=== PATIENT | female | born 1935 | race Caucasian/White ===

== ENCOUNTER 2019-12-13 13:49 | Outpatient (CLI) | payer MEDICARE, OTHER, SELFPAY ==
--- NOTE | 2019-12-13 14:02 | MM_ITS ---
WS: [id number] BILATERAL DIGITAL SCREENING MAMMOGRAPHY WITH CAD CLINICAL INFORMATION: SCREENING HISTORY: Screening mammogram. No current complaints. COMPARISON: TECHNIQUE: Bilateral CC and MLO views. FINDINGS: The breasts are composed of heterogeneous fibroglandular density tissue, which can limit the detectio n of small underlying mass lesions. No suspicious mass, asymmetry, calcifications, or architectural d istortion. No evidence of malignancy. Punctate and lucent centered calcifications. MM/[place] [id number] IMPRESSION: BI-RADS: 2-Benign FOLLOW UP: 1 Year Follow-up Recommend return to annual screening mammography.
== END 2019-12-13 13:50 | disposition home or self-care (01) ==
LOC: RADSHAW 13:56
PROVIDERS: PCP Family Medicine; Visit Provider Family Medicine
DX: Z12.31 Encounter for screening mammogram for malignant neoplasm of breast (principal)
CPT/HCPCS: 77067

== ENCOUNTER → 2020-03-03 12:35 | Outpatient (BNVA) | payer MEDICARE, OTHER, SELFPAY | PROVIDERS: PCP Family Medicine; Referring Provider Dermatology; Visit Provider Dermatology | DX: Z12.83 Encounter for screening for malignant neoplasm of skin (principal); L82.1 Other seborrheic keratosis; L73.8 Other specified follicular disorders; L53.9 Erythematous condition, unspecified | CPT/HCPCS: 99203; 99204 ==

== ENCOUNTER 2020-04-13 07:21 | Emergency (ER) | payer MEDICARE, OTHER, SELFPAY ==
[2020-04-13 07:21] VITALS: BP 139/104; PULSE 60; RESP 16; TEMP 36.3; O2SAT 96; BMI 23.9
--- NOTE | 2020-04-13 07:33 | ECG_ITS ---
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
--- NOTE | 2020-04-13 07:34 | CTR_ITS ---
PROCEDURE INFORMATION: Exam: CT Head Without Contrast Exam date and time: 04/13/2020 7:36 AM Age: 84 years old Clinical indication: Dizziness; Additional info: Dizzy TECHNIQUE: Imaging protocol: Computed tomography of the head without contrast. Radiation optimization: All CT scans at this facility use at least one of these dose optimization techniques: automated exposure control; mA and/or kV adjustment per patient size (includes targeted exams where dose is matched to clinical indication); or iterative reconstruction. COMPARISON: No relevant prior studies available. RADIATION DOSE METRICS: Total DLP (mGy-cm): 769.49 FINDINGS: Brain: There is no acute intracranial hemorrhage. There is mild lucency in the cerebral white matter, likely microvascular disease although non-specific. Kilpatrick white differentiation is intact. There are no extra-axial fluid collections. No evidence of mass. There is no mass effect or midline shift. Cerebral ventricles: The ventricles and sulci are enlarged, consistent with age related volume loss / atrophy. No hydrocephalus. Bones/joints: No acute fracture. Paranasal sinuses: There is small amount of secretions in inferolateral aspect of right sphenoid sinus. Otherwise visualized paranasal sinuses clear. Mastoid air cells: There is minimal opacification/fluid in inferior aspect of mastoid air cells bilaterally. Middle ears are clear. Inner ear structures appear symmetric and unremarkable as visualized. Vasculature: There is vascular calcification. Soft tissues: Unremarkable as visualized. CT/CT head wo con* [id number] IMPRESSION: 1. No evidence of acute intracranial abnormality. No evidence of acute infarction, hemorrhage, or mass. 2. 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 3. Other findings as described. Radiation Dose CTDIVOL = (mGy): DLP = 769.49 (mGy-cm)
--- NOTE | 2020-04-13 07:36 | ED_ITS ---
HPI - Nausea/Vomiting/Diarrhea General: Chief complaint: Nausea/Vomiting/Diarrhea Stated complaint: NAUSEA; DIARRHEA Time Seen by Provider: 04/13/20 07:22 History of Present Illness: HPI Narrative: This patient is an 84-year-old female who presents today with vomiting and diarrhea. She reports that during the night she had to get up 3 times to urinate. She said that is unusual for her to have to go that frequently. She denies pain or dysuria but said she had a funny feeling in her bladder or kidneys. The last time she got up she became violently ill. She felt dizzy and had vomiting and diarrhea. She has had multiple episodes of both. 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 When EMS arrived she was unable to even sit up without vomiting. They gave her some p.o. Zofran. Once in the ambulance they also gave her some IV Zofran and she is feeling somewhat better now. She still has some dizziness which is not made worse by turning her head side to side but is worse if she tries to sit up. She denies abdominal pain. She denies fever or cough. She denies any exposures to Covid. She is agreeable to Covid testing given that some people are presenting with GI symptoms. She has no other neurologic symptoms by history suggesting stroke however when she is feeling better I will do a thorough neuro exam. MD elicited complaint: nausea, vomiting and diarrhea Onset (ago): hour(s) (A few) Description of vomiting: bilious and foul-smelling Associated nausea: Yes Associated abdominal pain: No Exacerbating factors: movement Associated symtoms: Reports nausea and other (Urinary frequency); Denies change in vision, chest pain, fatigue, headache(s) or malaise Review of Systems General: Reports: 10 or more systems reviewed and unremarkable except in HPI and below Const: Denies: fever(s), chills, fatigue or malaise Eyes: Denies: change in vision ENMT: Denies: odynophagia Card: Denies: chest pain or swelling of feet/ankles Resp: Denies: dyspnea, productive cough or non-productive cough GI: Reports: nausea, vomiting and diarrhea : Denies: flank pain or difficulty voiding Musc: Denies: neck pain or back pain Skin/Breast: Denies: rash Neuro: Denies: headache(s), numbness in extremities or weakness in extremities Darrell/Lymph: Denies: easy bruising or easy bleeding PFSH ED PFSH: Family History Other No pertinent family history Social History Smoking and tobacco status: never smoked Alcohol intake: never History of recent travel: No Physical Exam Const: COMMON NORMALS: no acute distress, patient oriented x3, no limitations and alert GENERAL APPEARANCE: cooperative and comfortable HENMT: HEAD & SCALP: normal to inspection FACE & SINUS: normal facial exam Eye: GENERAL EYE: appearance normal, both eyes and all related structures Neck/C-Spine: COMMON NORMALS: supple, no meningeal signs and no JVD Chest: COMMONS NORMALS: normal inspection of the chest Resp: COMMON NORMALS: normal respiratory effort, No use of accessory muscles and clear to auscultation bilaterally AUSCULTATION: clear to auscultation bilaterally Cardio: COMMON NORMALS: no JVD, regular rate, regular rhythm and No murmurs present (Cardio) RATE: regular rate RHYTHM: regular rhythm GI: COMMON NORMALS: Normal to inspection, nondistended, normoactive bowel sounds present, Soft to palpation and non-tender INSPECTION: Yes normal to inspection AUSCULTATION: Yes normoactive bowel sounds PALPATION: Yes Soft to palpation Back/Pelvis: COMMON NORMALS: thoracic and lumbar spine normal to inspection Extremity: COMMON NORMALS: normal to inspection Neuro: COMMON NORMALS: patient oriented x3, moves all extremities, no focal motor deficits and no sensory deficits noted SENSORIUM/ORIENTATION: Yes alert MENINGEAL SIGNS: Yes no meningeal signs OTHER: Repeat exam after symptoms had improved. She had no focal deficits. Normal extraocular muscles. No ataxia. No weakness, numbness, tingling. Psych: COMMON NORMALS: mental status grossly normal, cooperative and normal affect Skin: COMMON NORMALS: no rashes or lesions noted and turgor normal GENERAL SKIN EXAM: no rashes or lesions noted and turgor normal Course ED course: Patient has complete resolution of her symptoms. Her work-up in the ED was unremarkable. Repeat neuro exam was nonfocal. We discussed the possibility of vertigo and gave her a prescription for some meclizine. She will also follow-up with her primary care doctor. We discussed that diarrhea is not typically a symptom related to vertigo but she says her IBS is such that the diarrhea may have been related to that. Vital Signs: Vital signs: Vital Signs Temperature 97.4 F L 04/13/20 07:21 Pulse Rate 75 04/13/20 11:20 Respiratory Rate 14 04/13/20 11:20 Blood Pressure 149/67 04/13/20 11:20 Pulse Oximetry 98 04/13/20 11:20 MDM - Nausea/Vomiting/Diarrhea Lab Data: Labs: Lab Results 04/13/20 04/13/20 04/13/20 Range/Units 07:42 07:42 07:42 WBC 5.8 (4.0-10.0) 10^3/ uL RBC 4.98 (4.1-5.3) 10^6/u L Hgb 14.3 (11.5-15.3) g/dL Hct 45.9 (37.0-47.0) % MCV 92.2 (81-99) fL MCH 28.7 (28.0-34.0) pg MCHC 31.2 (30.0-36.0) g/dL RDW 13.8 (12.1-15.1) % Plt Count 213 (130-400) 10^3/c mm MPV 10.8 H (7.4-10.4) fL Neut % (Auto) 59.7 % Lymph % (Auto) 30.4 % Shackelford % (Auto) 7.4 % Eos % (Auto) 1.9 % Baso % (Auto) 0.3 % Neut # (Auto) 3.48 (1.8-7.7) 10^3/u L Lymph # (Auto) 1.8 (0.8-4.8) 10^3/u L Shackelford # (Auto) 0.4 (0.2-0.9) 10^3/u L Eos # (Auto) 0.1 (0.0-0.8) 10^3/u L Baso # (Auto) 0.0 (0.0-0.1) 10^3/u L Nucleated RBC % (a uto) 0 % Nucleated RBCs # 0.0 /100WBC Sodium 142 (136-145) mmol/L Potassium 3.7 (3.5-5.1) mmol/L Chloride 105 (98-107) mmol/L Carbon Dioxide 25 (22-29) mmol/L Anion Gap 15.7 (5-19) BUN 18 (8-23) mg/dL Creatinine 0.8 (0.5-0.9) mg/dL GFR Calculation Not Reportable Glucose 136 H (65-115) mg/dL Calculated Osmolal ity 298 H (285-295) mOsm/k g Calcium 8.9 (8.5-10.5) mg/dL Total Bilirubin 0.5 (0.15-1.2) mg/dL AST 20 (0-32) U/L ALT 13 (0-33) U/L Alkaline Phosphata se 65 (35-105) IU/L Troponin T Baselin e 8 (0-10) ng/L Troponin T 120 Min council (0-10) ng/L Delta Troponin T (0-10) ABS# Total Protein 7.2 (6.6-8.7) g/dL Albumin 4.3 (3.5-5.2) g/dL Globulin 2.9 (1.3-4.6) g/dL Lipase 20 (13-60) U/L Urine Color (Yellow) Urine Appearance (CLEAR) Urine pH (5-7) Ur Specific Gravit y (1.005-1.030) Urine Protein (Negative) Urine Glucose (UA) (Normal) Urine Ketones (Negative) Urine Blood (Negative) Urine Nitrate (Negative) Urine Bilirubin (Negative) Urine Urobilinogen (Negative) mg/dL Ur Leukocyte Kemi ase (Negative) Urine RBC (0-2) /hpf Urine WBC (0-5) /hpf Ur Squamous Epith Cells (0-5) /hpf Ur Transition Epit h Cell /hpf Amorphous Sediment /hpf Urine Bacteria (NONE) /hpf Hyaline Casts /lpf Coarse Granular Ca sts /lpf Urine Mucus /hpf SARS-CoV-2 Ag (Rap id) (Negative) 04/13/20 04/13/20 04/13/20 Range/Units 07:51 09:05 09:49 WBC (4.0-10.0) 10^3/ uL RBC (4.1-5.3) 10^6/u L Hgb (11.5-15.3) g/dL Hct (37.0-47.0) % MCV (81-99) fL MCH (28.0-34.0) pg MCHC (30.0-36.0) g/dL RDW (12.1-15.1) % Plt Count (130-400) 10^3/c mm MPV (7.4-10.4) fL Neut % (Auto) % Lymph % (Auto) % Shackelford % (Auto) % Eos % (Auto) % Baso % (Auto) % Neut # (Auto) (1.8-7.7) 10^3/u L Lymph # (Auto) (0.8-4.8) 10^3/u L Shackelford # (Auto) (0.2-0.9) 10^3/u L Eos # (Auto) (0.0-0.8) 10^3/u L Baso # (Auto) (0.0-0.1) 10^3/u L Nucleated RBC % (a uto) % Nucleated RBCs # /100WBC Sodium (136-145) mmol/L Potassium (3.5-5.1) mmol/L Chloride (98-107) mmol/L Carbon Dioxide (22-29) mmol/L Anion Gap (5-19) BUN (8-23) mg/dL Creatinine (0.5-0.9) mg/dL GFR Calculation Glucose (65-115) mg/dL Calculated Osmolal ity (285-295) mOsm/k g Calcium (8.5-10.5) mg/dL Total Bilirubin (0.15-1.2) mg/dL AST (0-32) U/L ALT (0-33) U/L Alkaline Phosphata se (35-105) IU/L Troponin T Baselin e (0-10) ng/L Troponin T 120 Min council 9.64 (0-10) ng/L Delta Troponin T 1.64 (0-10) ABS# Total Protein (6.6-8.7) g/dL Albumin (3.5-5.2) g/dL Globulin (1.3-4.6) g/dL Lipase (13-60) U/L Urine Color Yellow (Yellow) Urine Appearance Cloudy (CLEAR) Urine pH 7 (5-7) Ur Specific Gravit y 1.010 (1.005-1.030) Urine Protein Neg (Negative) Urine Glucose (UA) Norm (Normal) Urine Ketones Negative (Negative) Urine Blood Neg (Negative) Urine Nitrate Negative (Negative) Urine Bilirubin Neg (Negative) Urine Urobilinogen Norm (Negative) mg/dL Ur Leukocyte Kemi ase 1+ H (Negative) Urine RBC 0-4 H (0-2) /hpf Urine WBC 15-25 H (0-5) /hpf Ur Squamous Epith Cells 0-4 H (0-5) /hpf Ur Transition Epit h Cell 0-4 /hpf Amorphous Sediment 1+ /hpf Urine Bacteria Trace (NONE) /hpf Hyaline Casts 0-4 H /lpf Coarse Granular Ca sts 5-10 H /lpf Urine Mucus 1+ /hpf SARS-CoV-2 Ag (Rap id) Negative (Negative) EKG Data^: EKG 1: EKG interpretation date: 04/13/20 EKG interpretation time: 08:02 Interpretation: Atrial fibrillation with a rate of 78. Inverted T waves in 2 3 aVF, V3 and V4. Nonspecific. No priors for comparison. Discharge Plan Discharge Patient Disposition: Home Clinical Impression: Vertigo, Abnormal ECG Condition: Stable Prescriptions: New meclizine 25 mg tablet 25 mg PO TID PRN (Reason: dizziness) Qty: 14 RF: 0 No Action amlodipine 5 mg tablet 5 mg PO DAILY RF: 0 citalopram 10 mg tablet 10 mg PO DAILY RF: 0 medroxyprogesterone 2.5 mg tablet See Rx Instructions .ROUTE .COMPLEX RF: 0 Acidophilus Capsule 1 cap PO DAILY RF: 0 Vitamin D3 125 mcg (5,000 unit) Tablet 5,000 unit PO DAILY RF: 0 Yuvafem 10 mcg tablet See Rx Instructions .ROUTE .COMPLEX RF: 0 Eyepromise 1 cap PO DAILY RF: 0 Probiotic 1 cap PO DAILY RF: 0 biotin 1 cap PO DAILY RF: 0 Discharge Orders: Discharge Order (Routine); Ordered 04/13/20 Ordered By: Nayeli Sharma Referrals: Gillian Moyer MD [Primary Care Provider] - Discharge Diet: Usual diet Discharge Activity: Resume usual activity Patient Instructions: Benign Paroxysmal Positional Vertigo (ED), Electrocardiogram (GEN) Activity Restrictions/Additional Instructions: You can take the meclizine up to 3 times a day if needed for nausea and dizziness. If your symptoms are severe or are associated with any other symptoms such as visual changes, speech changes, difficulty swallowing, numbness or weakness in any extremities, please return to the ER immediately. Your EKG today was also slightly abnormal and we recommend follow-up with your primary care doctor within the next week for further evaluation of that. Discharge Date/Time: 04/13/20 11:21 Coding Level of Care Code ED Lawn Technician for Chg Fwd Exam Comprehensive
[2020-04-13 07:49] LABS: Basophils % 0.3 %; Eosinophils # 0.1 10^3/uL (0.0-0.8); Eosinophils % 1.9 %; Hematocrit 45.9 % (37.0-47.0); Hemoglobin 14.3 g/dL (11.5-15.3); Lymphocytes # 1.8 10^3/uL (0.8-4.8); Lymphocytes % 30.4 %; Mean Corpuscular HGB Conc 31.2 g/dL (30.0-36.0); Mean Corpuscular Hemoglobin 28.7 pg (28.0-34.0); Mean Corpuscular Volume 92.2 fL (81-99); Mean Platelet Volume 10.8 fL (7.4-10.4); Monocytes # 0.4 10^3/uL (0.2-0.9); Monocytes % 7.4 %; Neutrophils # 3.48 10^3/uL (1.8-7.7); Neutrophils % 59.7 %; Nucleated Red Blood Cells % 0 %; Platelet Count 213 10^3/cmm (130-400); Red Blood Count 4.98 10^6/uL (4.1-5.3); Red Cell Distribution Width 13.8 % (12.1-15.1); White Blood Count 5.8 10^3/uL (4.0-10.0)
[2020-04-13 08:09] LABS: Alanine Aminotransferase 13 U/L (0-33); Albumin Level 4.3 g/dL (3.5-5.2); Alkaline Phosphatase 65 IU/L (35-105); Anion Gap 15.7 (5-19); Aspartate Amino Transferase 20 U/L (0-32); Blood Urea Nitrogen 18 mg/dL (8-23); Calcium 8.9 mg/dL (8.5-10.5); Carbon Dioxide 25 mmol/L (22-29); Chloride 105 mmol/L (98-107); Creatinine Clr Calc Pharmacy 47.8741; Globulin 2.9 g/dL (1.3-4.6); Glucose 136 mg/dL (65-115); Lipase 20 U/L (13-60); Osmolality Calculated 298 mOsm/kg (285-295); Potassium 3.7 mmol/L (3.5-5.1); Sodium 142 mmol/L (136-145); Total Bilirubin 0.5 mg/dL (0.15-1.2); Total Protein 7.2 g/dL (6.6-8.7)
[2020-04-13 08:10] LABS: Troponin(5th) Baseline 8 ng/L (0-10)
[2020-04-13 08:24] LABS: SARS Covid-2 Antigen Negative (Negative)
[2020-04-13] MEDS: meclizine 25 mg tablet PO (08:54)
[2020-04-13] MEDS: sodium chloride 0.9% 500 ML 999 ML IV (08:54)
[2020-04-13 09:28] LABS: Add Urine Microscopic? YES; Bilirubin Urine Neg (Negative); Blood Urine Neg (Negative); Glucose Urine UA Norm (Normal); Ketones Urine Negative (Negative); Leukocyte Esterase Urine 1+ (Negative); Nitrate Urine Negative (Negative); Protein Urine Neg (Negative); Urine Appearance Cloudy (CLEAR); Urine Color Yellow (Yellow); Urobilinogen Urine Norm (Negative); pH Urine 7 (5-7)
[2020-04-13 09:29] LABS: Bacteria Urine TRACE /hpf; RBC Urine 0-4 /hpf (0-2); Squamous Epithelial Cell Urine 0-4 /hpf (0-5); Transitional Epi Cells Urine 0-4 /hpf; WBC Urine 15-25 /hpf (0-5)
[2020-04-13 09:30] LABS: Add Urine Culture? Yes; Amorphous Sediment Urine 1+ /hpf; Hyaline Casts Urine 0-4 /lpf; Mucus Urine 1+ /hpf
--- NOTE | 2020-04-13 09:33 | ECG_ITS ---
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
[2020-04-13 10:23] LABS: Troponin 5 2HR 9.64 ng/L (0-10); Troponin 5 2HR Delta 1.64 ABS# (0-10)
[2020-04-13 11:20] VITALS: BP 149/67; PULSE 75; RESP 14; O2SAT 98
== END 2020-04-13 11:21 | disposition home or self-care (01) ==
PROVIDERS: Emergency Provider Emergency Medicine; PCP Family Medicine
DX: R42 Dizziness and giddiness (principal); R94.31 Abnormal electrocardiogram [ECG] [EKG]; Z79.899 Other long term (current) drug therapy
CPT/HCPCS: 12345; 70450; 80053; 81001; 83690; 84484; 85025; 87086; 87426; 93005; 99282; 99283; J7040; J8597

== ENCOUNTER 2020-05-30 12:36 | Outpatient (CLI) | payer MEDICARE, OTHER, SELFPAY ==
--- NOTE | 2020-05-30 12:45 | USCV_ITS ---
Ana Durand Age: 84 Gender: F : 1935 Exam Date: 05/30/2020 13:00 Ordering Phys: Inge Figueredo MD ([email or web address]) Technologist: Josy Martinez [place] [facility] [place] AFIB BP: 120 / 60 HR: 53 Rhythm: Sinus Technical Quality: Adequate MEASUREMENTS (Male / Female) Normal Values 2D ECHO LV Diastolic Diameter PLAX 4.0 cm 4.2 - 5.9 / 3.9 - 5.3 cm LV Systolic Diameter PLAX 3.2 cm LV Chamber Size 4.7 cm IVS Diastolic Thickness 1.2 cm 0.6 - 1.0 / 0.6 - 0.9 cm IVS Systolic Thickness 1.4 cm LVPW Diastolic Thickness 1.6 cm 0.6 - 1.0 / 0.6 - 0.9 cm LVPW Systolic Thickness 1.6 cm RV Chamber Size 3.3 cm LVOT Diameter 2.0 cm LV Ejection Fraction 2D Teich 40.5 % LV Ejection Fraction MOD 2C 63.0 % LV Ejection Fraction 2C AL 65.9 % LA Diameter 3.8 cm LA Width 2.6 cm LA Height 4.8 cm RA Width 2.7 cm RA Height 3.9 cm Aorta at Sinotubular Diameter 2.8 cm M-MODE LV Diastolic Diameter MM 5.2 cm 4.2 - 5.9 / 3.9 - 5.3 cm LV Systolic Diameter MM 3.4 cm LV Ejection Fraction MM Teich 64.6 % IVS Diastolic Thickness MM 1.1 cm 0.6 - 1.0 / 0.6 - 0.9 cm IVS Systolic Thickness MM 1.8 cm LVPW Diastolic Thickness MM 0.9 cm 0.6 - 1.0 / 0.6 - 0.9 cm LVPW Systolic Thickness MM 1.5 cm RV Diastolic Diameter MM 1.8 cm Aortic Annulus Diameter 2.9 cm LA Ao Ratio MM 1.4 MV E Point Septal Separation 0.6 cm DOPPLER AV Peak Velocity 164.0 cm/s LVOT Peak Velocity 83.0 cm/s AV Area Cont Eq vti 1.6 cm squared AV Area Cont Eq pk 1.6 cm squared MV Area PHT 5.0 cm squared Mitral E to A Ratio 1.3 MV E' Velocity 86.0 cm/s Mitral E to LV E' Septal Ratio 10.5 TR Peak Velocity 238.7 cm/s TR Peak Gradient 22.8 mmHg TR Mean Velocity 180.9 cm/s TR Mean Gradient 15.4 mmHg TR Velocity Time Integral 86.2 cm TV Peak E Velocity 64.0 cm/s Right Atrial Pressure 3.0 mmHg Pulmonary Artery Systolic Pressu 25.8 mmHg PV Peak Velocity 91.0 cm/s RV Acceleration Time 0.2 s RV Ejection Time 0.3 s RV AcT/ET 0.5 FINDINGS Left Ventricle Normal left ventricular size, systolic function and increased wall thickness, with no regional wall motion abnormalities. Mild concentric left ventricular hypertrophy. Left ventricular ejection fraction is estimated at 65 %. Grade II diastolic dysfunction, moderately elevated filling pressures. Right Ventricle Normal right ventricular size and systolic function. Right ventricular systolic pressure 38 mmHg. Right Atrium Normal right atrial size. Right atrial pressure estimated at 3 mm Hg. Left Atrium Mildly to moderately increased left atrial size. Mitral Valve Structurally normal mitral valve. No mitral valve stenosis. Mild posteriorly directed mitral valve regurgitation. Aortic Valve Structurally normal trileaflet aortic valve. No aortic valve stenosis. No aortic valve regurgitation. Tricuspid Valve Structurally normal tricuspid valve. No tricuspid valve stenosis. Mild tricuspid valve regurgitation. Pulmonic Valve Structurally normal pulmonic valve. No pulmonary valve stenosis. Trace pulmonary valve regurgitation. Pericardium No pericardial effusion. Aorta Normal size aortic root and proximal ascending aorta. Normal sized inferior vena cava. CONCLUSIONS 1. Normal left ventricular size, systolic function and increased wall thickness, with no regional wall motion abnormalities. Mild concentric left ventricular hypertrophy. Left ventricular ejection fraction is estimated at 65 %. Grade II diastolic dysfunction, moderately elevated filling pressures. 2. Mildly to moderately increased left atrial size. 3. Mild posteriorly directed mitral valve regurgitation. 4. Mild pulmonary hypertension with pulmonary artery pressure estimated at 38 mm Hg. 5. No prior similar studies to compare. Inge Figueredo MD (Electronically Signed) Final Date: 04 June 2020 22:37 S
== END 2020-05-30 12:37 | disposition home or self-care (01) ==
LOC: US 12:37
PROVIDERS: PCP Family Medicine; Visit Provider Internal Medicine Cardiovascular Disease
DX: I48.91 Unspecified atrial fibrillation (principal); I34.0 Nonrheumatic mitral (valve) insufficiency
CPT/HCPCS: 93306

== ENCOUNTER 2021-01-14 08:14 | Outpatient (CLI) | payer MEDICARE, OTHER, SELFPAY ==
--- NOTE | 2021-01-14 08:20 | MM_ITS ---
WS: [id number] BILATERAL DIGITAL SCREENING MAMMOGRAPHY WITH CAD CLINICAL INFORMATION: SCREENING HISTORY: Screening mammogram. No current complaints. COMPARISON: December 13, 2019 TECHNIQUE: Bilateral CC and MLO views. FINDINGS: The breasts are composed of heterogeneous fibroglandular density tissue, which can limit the detectio n of small underlying mass lesions. No suspicious mass, asymmetry, calcifications, or architectural d istortion. No evidence of malignancy. Punctate and lucent centered calcifications. MM/[place] [id number] IMPRESSION: BI-RADS: 2-Benign FOLLOW UP: 1 Year Follow-up Recommend return to annual screening mammography.
== END 2021-01-14 08:15 | disposition home or self-care (01) ==
LOC: RADSHAW 08:19
PROVIDERS: PCP Family Medicine; Visit Provider Family Medicine
DX: Z12.31 Encounter for screening mammogram for malignant neoplasm of breast (principal)
CPT/HCPCS: 77067

== ENCOUNTER 2022-01-18 12:40 | Outpatient (CLI) | payer MEDICARE, OTHER, SELFPAY ==
--- NOTE | 2022-01-18 13:12 | MM_ITS ---
WS: [id number] BILATERAL 3D TOMOSYNTHESIS DIGITAL SCREENING MAMMOGRAPHY WITH CAD CLINICAL INFORMATION: SCREENING HISTORY: Screening mammogram. No current complaints. COMPARISON: January 14, 2021 TECHNIQUE: Bilateral CC and MLO views. FINDINGS: The breasts are composed of heterogeneous fibroglandular density tissue, which can limit the detectio n of small underlying mass lesions. Punctate and lucent centered calcifications. No suspicious mass, asymmetry, calcifications, or architectural distortion. No evidence of malignancy. MM/[place] [id number] IMPRESSION: BI-RADS: 2-Benign FOLLOW UP: 1 Year Follow-up Recommend return to annual screening mammography.
== END 2022-01-18 12:41 | disposition home or self-care (01) ==
LOC: RAD 05-11 10:40
PROVIDERS: PCP Family Medicine; Visit Provider Family Medicine
DX: Z12.31 Encounter for screening mammogram for malignant neoplasm of breast (principal)
CPT/HCPCS: 77063; 77067

== ENCOUNTER 2022-05-13 14:12 | Outpatient (CLI) | payer MEDICARE, OTHER, SELFPAY ==
--- NOTE | 2022-05-13 14:49 | XR_ITS ---
WS: [id number] SCREENING DEXA SCAN [employer] CLINICAL INFORMATION: POSTMENOPAUSAL COMPARISON: 2019 FINDINGS: The L1-L4 bone mineral density measures 1.196 g/cm2. This corresponds to a T score score of 0.1 and Z score of 2.3. Left femoral neck bone mineral density measures 0.892 g/cm2. This corresponds to a T score of -0.9 an d Z score of 1.5. Right femoral neck bone mineral density measures 0.968 g/cm2. This corresponds to a T score -0.3of an d Z score of 2.1. Mean femoral neck bone mineral density measures 0.930 g/cm2. This corresponds to a T score of -0.6 an d Z score of 1.8. XR/XR DEXA axial skeleton* [id number] IMPRESSION: Normal bone mineralization. Patient's FRAX calculated 10 year probability for major osteoporotic fracture i s 27.5 % and osteoporotic hip fracture is 18.3%. Bone mineral density in the lumbar spine has decreased -1.2% since 2019. Bone mineral density in the femoral necks has decreased -0.9% since 2019.
== END 2022-05-13 14:13 | disposition home or self-care (01) ==
LOC: RAD 14:12
PROVIDERS: PCP Family Medicine; Visit Provider Family Medicine
DX: Z78.0 Asymptomatic menopausal state (principal)
CPT/HCPCS: 77080

== ENCOUNTER → 2022-07-12 10:29 | Outpatient (BNVA) | payer MEDICARE, SELFPAY | PROVIDERS: PCP Family Medicine; Visit Provider Internal Medicine Cardiovascular Disease | DX: R00.1 Bradycardia, unspecified (principal); I48.0 Paroxysmal atrial fibrillation; I10 Essential (primary) hypertension; E78.2 Mixed hyperlipidemia; F41.9 Anxiety disorder, unspecified; E03.9 Hypothyroidism, unspecified; I34.0 Nonrheumatic mitral (valve) insufficiency | CPT/HCPCS: 99214; Q3014 ==

== ENCOUNTER 2023-02-08 14:28 | Outpatient (CLI) | payer MEDICARE, SELFPAY ==
--- NOTE | 2023-02-08 15:02 | MM_ITS ---
WS: [id number] VIEWS: MLO and CC views both breasts. 3D digital tomosynthesis is also included in this exam. Comparison made with prior exam of 06/16/2016, 07/13/2017, 08/02/2018, 12/13/2019. 01/14/2021, 01/18/2022.. Findings: There was no sign of mass, architectural distortion or suspicious calcification in either breast. The breasts are heterogeneously dense which may obscure small masses. Impression: MM/[place] [id number] BI-RADS: 2-Benign FOLLOW-UP: 1 Year Follow-up This mammogram was also analyzed by the Computer Aided Detection System R2 Imag e [employer] Hat Hacker.
== END 2023-02-08 14:29 | disposition home or self-care (01) ==
LOC: RAD 14:30
PROVIDERS: PCP Family Medicine; Visit Provider Family Medicine
DX: Z12.31 Encounter for screening mammogram for malignant neoplasm of breast (principal)
CPT/HCPCS: 77063; 77067

== ENCOUNTER → 2023-07-18 13:31 | Outpatient (BNVA) | payer MEDICARE, OTHER, SELFPAY | PROVIDERS: PCP Family Medicine; Visit Provider Internal Medicine Cardiovascular Disease | DX: E78.2 Mixed hyperlipidemia (principal); I48.0 Paroxysmal atrial fibrillation; I10 Essential (primary) hypertension | CPT/HCPCS: 99213 ==

== ENCOUNTER 2024-02-15 09:21 | Outpatient (CLI) | payer MEDICARE, OTHER, SELFPAY ==
--- NOTE | 2024-02-15 09:26 | MM_ITS ---
WS: [id number] BILATERAL 3D TOMOSYNTHESIS DIGITAL SCREENING MAMMOGRAPHY WITH CAD CLINICAL INFORMATION: SCREENING HISTORY: Screening mammogram. No current complaints. COMPARISON: 2022 TECHNIQUE: Bilateral CC and MLO views. FINDINGS: The breasts are composed of heterogeneous fibroglandular density tissue, which can limit the detectio n of small underlying mass lesions. No suspicious mass, asymmetry, calcifications, or architectural d istortion. No evidence of malignancy. Incidental punctate and lucent centered calcifications MM/[place] [id number] IMPRESSION: DENSITY: There are scattered areas of fibroglandular density. BI-RADS: 2 - Benign FOLLOW UP: 1 Year Follow-up Recommend return to annual screening mammography.
== END 2024-02-15 09:22 | disposition home or self-care (01) ==
LOC: RAD 09:21
PROVIDERS: PCP Family Medicine; Visit Provider Family Medicine
DX: Z12.31 Encounter for screening mammogram for malignant neoplasm of breast (principal); R92.333 Mammographic heterogeneous density, bilateral breasts; R92.1 Mammographic calcification found on diagnostic imaging of breast
CPT/HCPCS: 77063; 77067

== ENCOUNTER 2024-03-16 07:32 | Emergency (ER) | payer MEDICARE, OTHER, SELFPAY ==
[2024-03-16 07:46] VITALS: BP 182/82; PULSE 56; RESP 18; TEMP 36.7; O2SAT 99
[2024-03-16 07:53] VITALS: BP 182/82; PULSE 56; O2SAT 98
[2024-03-16 07:53] LABS: Glucose Point of Care 146 mg/dL (70-110)
--- NOTE | 2024-03-16 08:14 | ECG_ITS ---
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 Measurements Intervals [place] Rate: 53 P: 24 SD: 163 QRS: 35 QRSD: 98 T: 50 QT: 395 QTc: 372 Interpretive Statements SINUS BRADYCARDIA WITH SINUS ARRHYTHMIA MODERATE ST DEPRESSION [0.05+ mV ST DEPRESSION] Compared to ECG 04/13/2020 09:56:03 No significant changes Electronically Signed On 03-17-2024 20:54:12 CDT by Dickson Wallace M.D. [id number]
[2024-03-16 08:20] LABS: Basophils % 0.2 %; Eosinophils # 0.2 10^3/uL (0.0-0.8); Eosinophils % 1.8 %; Lymphocytes # 2.1 10^3/uL (0.8-4.8); Lymphocytes % 21.8 %; Mean Corpuscular HGB Conc 32.1 g/dL (30-55); Mean Corpuscular Hemoglobin 28.4 pg (27-33); Mean Corpuscular Volume 88.6 fl (85-98); Mean Platelet Volume 10.4 fL (7.4-10.4); Monocytes # 0.8 10^3/uL (0.2-0.9); Monocytes % 8.5 %; Neutrophils # 6.43 10^3/uL (1.8-7.7); Neutrophils % 67.4 %; Nucleated Red Blood Cells % 0 %; Platelet Count 264 10^3/cmm (157-399); White Blood Count 9.54 10^3/uL (3.29-11.43)
--- NOTE | 2024-03-16 08:22 | XR_ITS ---
WS: [id number] Exam: XR chest 1V portable [id number] Date/Time of Exam: 03/16/2024 8:42 AM Reason For Exam: dyspnea/cough No priors. Lungs are fully inflated and clear. Normal cardiomediastinal silhouette. No pleural effusions. Unrema rkable bony structures. Tortuosity of the thoracic aorta. XR/XR chest 1V portable [id number] IMPRESSION: 1. No acute cardiopulmonary finding.
--- NOTE | 2024-03-16 08:22 | CT_ITS ---
WS: [id number] CT HEAD NONCONTRAST HISTORY: Dizziness near syncope TECHNIQUE: Contiguous axial imaging performed through the brain. Bone and soft tissue windows. Sagitt al and coronal reformats reviewed. All CT scans at [facility] use at least one of these dose optimization techniques: automated exposure control; mA and/or kV adjustment per patient size (includ es targeted exams where dose is matched to clinical indication); or iterative reconstruction. DLP: 1081.98 mGy.cm COMPARISON: 04/13/2020 No acute intracranial hemorrhage, midline shift or mass effect. Moderate atrophy and mild small vessel disease. Small lacunar infarcts in the anterior internal capsu les. Ventricles: Normal size with no hydrocephalus. No inferior displacement of the cerebellar tonsils. Paranasal sinuses: Marked mucoperiosteal thickening involving the maxillary and sphenoid and ethmoid sinuses. Mastoid air cells: Well pneumatized. Calvarium and scalp: Skull is intact with no soft tissue edema or swelling. CT/CT head wo con* [id number] IMPRESSION: 1. No acute intracranial hemorrhage or edema. 2. Moderate atrophy and mild small vessel disease. 3. Paranasal sinusitis.
[2024-03-16 08:38] LABS: Alanine Aminotransferase 18 U/L (0-33); Albumin Level 3.8 g/dL (3.5-5.2); Alkaline Phosphatase 61 U/L (35-105); Anion Gap 15.1 (5-19); Aspartate Amino Transferase 20 U/L (0-32); Blood Urea Nitrogen 15 mg/dL (8-23); Calcium 8.4 mg/dL (8.5-10.5); Carbon Dioxide 24 mmol/L (22-29); Chloride 104 mmol/L (98-107); Globulin 3.2 g/dL (1.3-4.6); Glucose 140 mg/dL (65-115); Osmolality Calculated 291 mOsm/kg (285-295); Potassium 4.1 mmol/L (3.5-5.1); Sodium 139 mmol/L (136-145); Total Bilirubin 0.4 mg/dL (0.15-1.2)
[2024-03-16 08:50] LABS: Troponin(5th) Baseline 14 ng/L (0-10)
--- NOTE | 2024-03-16 09:41 | ECG_ITS ---
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 Measurements Intervals [place] Rate: 42 P: 53 ND: 200 QRS: 15 QRSD: 93 T: 34 QT: 434 QTc: 367 Interpretive Statements SINUS BRADYCARDIA WITH SINUS ARRHYTHMIA MODERATE ST DEPRESSION [0.05+ mV ST DEPRESSION] Compared to ECG 03/16/2024 08:15:04 No significant changes Electronically Signed On 03-17-2024 21:12:37 CDT by Dickson Wallace M.D. [email or web address] medical [email or web address] [facility].[employer]/store/OM/[id number]
[2024-03-16 10:00] VITALS: BP 154/64; PULSE 44; O2SAT 94
[2024-03-16 10:06] VITALS: BP 164/79; BP 168/80; BP 179/82; PULSE 51; PULSE 53; PULSE 54
--- NOTE | 2024-03-16 10:23 | ED_ITS ---
HPI - Nausea/Vomiting/Diarrhea 2 General: Chief complaint: Nausea/Vomiting/Diarrhea Stated complaint: ringing in ears, dizzy, blood sugar 242 Time Seen by Provider: 03/16/24 08:01 History of Present Illness: 88-year-old female presents emergency ro om with family. She has had some syncopal episodes in the past. Today she presents feeling mild abdominal discomfort and just generally unsteady. She has had some ringing in her ears dizziness. She denies chest pain or abdominal pain no dysuria urgency or frequency. She has chronic diarrhea which remains unchanged. She has not had any hematochezia melena hematemesis or coffee-ground emesis. She has not actually had an episode of syncope but does feel like on multiple occasions she is going to pass out. No associated shortness of breath or chest pain with these episodes. Associated symtoms: Denies chest pain or dysuria Related Data Home Medications Medication Instructions Recorded Confirmed amlodipine 5 mg tablet 5 mg PO DAILY 03/03/20 03/16/24 cholecalciferol (vitamin D3) 125 5,000 unit PO DAILY 04/13/20 03/16/24 mcg (5,000 unit) tablet (Vitamin D3) estradiol 10 mcg vaginal tablet See Rx Instructions .Route .COMPLEX 04/13/20 03/16/24 (Yuvafem) medroxyprogesterone 2.5 mg tablet See Rx Instructions .Route .COMPLEX 04/13/20 03/16/24 vitamin B complex 1 tab PO DAILY 07/15/21 03/16/24 citalopram 10 mg tablet 5 mg PO DAILY 07/12/22 03/16/24 omega-3 fatty acids 1,000 mg 1,000 mg PO DAILY 07/12/22 03/16/24 capsule biotin 10 mg tablet 10 mg PO DAILY 03/16/24 03/16/24 turmeric 400 mg capsule 400 mg PO DAILY 03/16/24 03/16/24 Allergies Allergy/AdvReac Type Severity Reaction Status Date / Time adhesive tape Allergy rash Verified 07/18/23 13:48 Corticosteroids Allergy can't Verified 07/18/23 13:48 (Glucocorticoids) remember latex Allergy rash Verified 07/18/23 13:48 neomycin Allergy can't Verified 07/18/23 13:48 remember penicillin G Allergy Not sure Verified 07/18/23 13:48 tixocortol Allergy can't Verified 07/18/23 13:48 remember Review of Systems 2 Const: Denies: fever(s) or chills Card: Denies: chest pain Resp: Denies: dyspnea GI: Denies: abdominal pain : Denies: dysuria, urinary frequency or urinary urgency Musc: Denies: neck pain or back pain Skin/Breast: Denies: rash PFSH ED 2 PFSH: Medical History Hypothyroidism HTN (hypertension) Allergic eczema Atrial fibrillation Hyperlipidemia Surgical History History of parathyroid surgery Family History Other Congestive heart failure (CHF) Eczema Hypertension No pertinent family history Social History Smoking and tobacco/nicotine status: never used tobacco/nicotine Alcohol intake: never Physical Exam 2 Const: GENERAL APPEARANCE: cooperative ORIENTATION/CONSCIOUSNESS: Yes awake, Yes oriented to person, Yes oriented to place and Yes oriented to time HENMT: COMMON NORMALS: normocephalic, atraumatic and hearing grossly normal bilaterally HEAD & SCALP: normocephalic and atraumatic Resp: COMMON NORMALS: normal respiratory effort, No retractions, No use of accessory muscles and clear to auscultation bilaterally AUSCULTATION: clear to auscultation bilaterally Cardio: COMMON NORMALS: regular rate, regular rhythm and No murmurs present (Cardio) RATE: regular rate RHYTHM: regular rhythm GI: COMMON NORMALS: Soft to palpation and No hepatosplenomegaly present A USCULTATION: Yes normoactive bowel sounds PALPATION: Yes Soft to palpation, No Tenderness to palpation present (GI), No Guarding due to palpation present (GI) and Yes No hepatosplenomegaly present Extremity: COMMON NORMALS: normal to inspection, capillary refill normal, no clubbing, cyanosis or edema, no calf tenderness and no pedal edema Neuro: SENSORIUM/ORIENTATION: Yes oriented to person, Yes oriented to place and Yes oriented to time Skin: COMMON NORMALS: no rashes or lesions noted GENERAL SKIN EXAM: no rashes or lesions noted Course 2 Vital Signs: Vital signs: Vital Signs Temperature 98.1 F 03/16/24 07:46 Pulse Rate 48 L 03/16/24 11:27 Respiratory Rate 18 03/16/24 07:46 Blood Pressure 135/63 03/16/24 11:27 Pulse Oximetry 94 03/16/24 11:27 Oxygen Delivery Me thod Room Air 03/16/24 07:46 MDM - Nausea/Vomiting/Diarrhea Medical Decision Making Patient has had diarrhea for years. She gets abdominal discomfort when she has these near syncopal episodes. Suspect she may have some with static hypotension she is rather bradycardic although she only shows sinus bradycardia with a heart block. EKG shows no acute ST elevations. She is not having any chest pain at this time. Will discharge patient home set up for stress test as well as echocardiogram and 48-hour Holter monitor orthostatics were normal. She is symptom-free at this time. She has had similar episodes in the past. Refer to cardiology as well. Return if is further problems. Additionally blood sugar was reported to be elevated at 242 at home was not that high here was in the 140s recommend she follow-up with primary care regarding this as well. Medical Records I reviewed the patient's medical records. Lab Data I reviewed the patient's lab results. 03/16/24 08:14 03/16/24 08:14 Radiology Impressions Chest X-Ray 03/16/24 08:22 IMPRESSION: 1. No acute cardiopulmonary finding. Head CT 03/16/24 08:22 IMPRESSION: 1. No acute intracranial hemorrhage or edema. 2. Moderate atrophy and mild small vessel disease. 3. Paranasal sinusitis. Laboratory Results WBC 9.54 10^3/uL (3.29-11.43) 03/16/24 08:14 RBC 4.40 10^6/uL (3.85-5.65) 03/16/24 08:14 Hgb 12.50 g/dL (11.27-16.99) 03/16/24 08:14 Hct 39.0 % (36-47) 03/16/24 08:14 MCV 88.6 fl (85-98) 03/16/24 08:14 MCH 28.4 pg (27-33) 03/16/24 08:14 MCHC 32.1 g/dL (30-55) 03/16/24 08:14 RDW 14.0 % (12.1-15.1) 03/16/24 08:14 Plt Count 264 10^3/cmm (157-399) 03/16/24 08:14 MPV 10.4 fL (7.4-10.4) 03/16/24 08:14 Neut % (Auto) 67.4 % 03/16/24 08:14 Lymph % (Auto) 21.8 % 03/16/24 08:14 [place] % (Auto) 8.5 % 03/16/24 08:14 Eos % (Auto) 1.8 % 03/16/24 08:14 Baso % (Auto) 0.2 % 03/16/24 08:14 Neut # (Auto) 6.43 10^3/uL (1.8-7.7) 03/16/24 08:14 Lymph # (Auto) 2.1 10^3/uL (0.8-4.8) 03/16/24 08:14 [place] # (Auto) 0.8 10^3/uL (0.2-0.9) 03/16/24 08:14 Eos # (Auto) 0.2 10^3/uL (0.0-0.8) 03/16/24 08:14 Baso # (Auto) 0.0 10^3/uL (0.0-0.1) 03/16/24 08:14 Nucleated RBC % (auto) 0 % 03/16/24 08:14 Nucleated RBCs # 0.0 /100WBC 03/16/24 08:14 Sodium 139 mmol/L (136-145) 03/16/24 08:14 Potassium 4.1 mmol/L (3.5-5.1) 03/16/24 08:14 Chloride 104 mmol/L (98-107) 03/16/24 08:14 Carbon Dioxide 24 mmol/L (22-29) 03/16/24 08:14 Anion Gap 15.1 (5-19) 03/16/24 08:14 BUN 15 mg/dL (8-23) 03/16/24 08:14 Creatinine 0.9 mg/dL (0.5-0.9) 03/16/24 08:14 GFR Calculation Not Reportable 03/16/24 08:14 Glucose 140 mg/dL (65-115) H 03/16/24 08:14 POC Glucose 146 mg/dL (70-110) H 03/16/24 07:50 Calculated Osmolality 291 mOsm/kg (285-295) 03/16/24 08:14 Calcium 8.4 mg/dL (8.5-10.5) L 03/16/24 08:14 Total Bilirubin 0.4 mg/dL (0.15-1.2) 03/16/24 08:14 AST 20 U/L (0-32) 03/16/24 08:14 ALT 18 U/L (0-33) 03/16/24 08:14 Alkaline Phosphatase 61 U/L (35-105) 03/16/24 08:14 Troponin T Baseline 14 ng/L (0-10) H 03/16/24 08:14 Troponin T 120 Minute 13.29 ng/L (0-10) H 03/16/24 10:14 Delta Troponin T -0.71 ABS# (0-10) L 03/16/24 10:14 Total Protein 7.0 g/dL (6.6-8.7) 03/16/24 08:14 Albumin 3.8 g/dL (3.5-5.2) 03/16/24 08:14 Globulin 3.2 g/dL (1.3-4.6) 03/16/24 08:14 All radiology interpretation(s) finalized by discharge Discharge Plan Discharge Patient Disposition: Home Clinical Impression: Near syncope, Chronic diarrhea Condition: Stable Prescriptions: No Action amlodipine 5 mg tablet 5 mg PO DAILY citalopram 10 mg tablet 5 mg PO DAILY vitamin B complex Tablet 1 tab PO DAILY omega-3 fatty acids 1,000 mg capsule 1,000 mg PO DAILY medroxyprogesterone 2.5 mg tablet See Rx Instructions .ROUTE .COMPLEX Rx Instructions: 2.5 mg orally FOR THE LAST 2 WEEKS OF EACH MONTH cholecalciferol (vitamin D3) [Vitamin D3] 125 mcg (5,000 unit) Tablet 5,000 unit PO DAILY estradiol [Yuvafem] 10 mcg tablet See Rx Instructions .ROUTE .COMPLEX Rx Instructions: 10 mcg vaginally TWICE A WEEK DIRECTED-PT STATES SHE IS JUST USING ONCE A WEEK biotin 10 mg Tablet 10 mg PO DAILY turmeric 400 mg Capsule 400 mg PO DAILY Discharge Orders: Discharge ED (Routine); Ordered 03/16/24 Ordered By: Maverick Alejo Referrals: Gillian Moyer MD [Primary Care Provider] - Discharge Diet: Usual diet Discharge Activity: Increase activity as tolerated Patient Instructions: Opioid Safety, Pain Management Activity Restrictions/Additional Instructions: Thank you for choosing [facility] for your healthcare needs today. It is very important that you follow up as instructed or that you return to the Emergency Department should you have concerns or if your condition changes or worsens in any way. You were seen today for complaints of near syncope. You were noted to have a rather slow heart rate but the rest of your evaluation was normal. Review of your medicine list there is no medicines that will cause a slow heart rate. Recommend to get an outpatient echocardiogram Lexiscan sestamibi stress test and a 72-hour Holter monitor. Case management will arrange for these as well as arranging for a follow-up with cardiology. You should follow-up with your doctor within a week. Your blood sugar was 146 when we checked it here that should be followed up with your primary care physician as well. Coding Level of Care Code ED Frame Table Operator Helper for Osmar Garza
[2024-03-16 10:49] LABS: Troponin 5 2HR 13.29 ng/L (0-10); Troponin 5 2HR Delta -0.71 ABS# (0-10)
--- NOTE | 2024-03-16 11:02 | ECG_ITS ---
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 Measurements Intervals [place] Rate: 46 P: 7 NC: 163 QRS: 22 QRSD: 93 T: 32 QT: 421 QTc: 370 Interpretive Statements SINUS BRADYCARDIA WITH MARKED SINUS ARRHYTHMIA MODERATE ST DEPRESSION [0.05+ mV ST DEPRESSION] Compared to ECG 03/16/2024 09:41:13 No significant changes Electronically Signed On 03-17-2024 21:13:29 CDT by Dickson Wallace M.D. [email or web address].[email or web address] Medicalmemorial hospital at stone countyDelta Systemskettering health greene memorial.[employer]/store/OM/[id number]/[id number]
[2024-03-16 11:27] VITALS: BP 135/63; PULSE 48; O2SAT 94
== END 2024-03-16 11:27 | disposition home or self-care (01) ==
PROVIDERS: Emergency Provider Family Medicine; PCP Family Medicine
DX: R55 Syncope and collapse (principal); K52.9 Noninfective gastroenteritis and colitis, unspecified; I10 Essential (primary) hypertension; E78.5 Hyperlipidemia, unspecified
CPT/HCPCS: 36415; 36416; 70450; 71045; 80053; 82962; 84484; 85025; 93005; 99285

== ENCOUNTER → 2024-03-26 13:25 | Outpatient (BNVA) | payer MEDICARE, OTHER, SELFPAY | PROVIDERS: PCP Family Medicine; Visit Provider Internal Medicine Cardiovascular Disease | DX: R00.1 Bradycardia, unspecified (principal); R55 Syncope and collapse; I49.1 Atrial premature depolarization; I49.3 Ventricular premature depolarization | CPT/HCPCS: 93225 ==

== ENCOUNTER 2024-04-09 08:03 | Outpatient (CLI) | payer MEDICARE, OTHER, SELFPAY ==
[2024-04-09 09:01] VITALS: BMI 23.9
--- NOTE | 2024-04-09 09:01 | ECG_ITS ---
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 Interpretive Statements LEXISCAN SESTAMIBI STRESS TEST Procedure: At the baseline, the blood pressure was 157/90 mmHg with a heart rate of 57 bpm. The electrocardiogram showed atrial fibrillation normal axis with normal ST and T's. The Lexiscan was infused over a period of 20 seconds. A total of 0.4 mg of Lexiscan was infused. The stress phase was continued for a total of 5 minutes. Heart rate was at the end of stress phase was 71 bpm and a blood pressure of 153/74 mmHg. The EKG at the peak infusion revealed atrial fibrillation with no significant ST-T wave changes. Sestamibi was injected 20 seconds after the Lexiscan infusion. Blood pressure at the end of recovery phase was 143/74 mmHg with a heart rate of 70 bpm. Conclusion: 1. Normal EKG response to Lexiscan infusion 2. No Lexiscan induced chest pain or cardiac arrhythmia. 3. Normal blood pressure and heart rate response. 4. Sestamibi/sestamibi perfusion scan pending; see separate report. Electronically Signed On 05-16-2024 18:20:32 CORPORATE INTERN by Peter Arisa M.D. [email or web address]/store/OM/[id number]
--- NOTE | 2024-04-09 09:02 | NMCV_ITS ---
NM chacho perf SPECT r/s* [id number] Ana Durand Age: 88 Gender: F : 1935 Exam Date: 04/09/2024 09:12 Ordering Phys: Maverick Alejo DO Technologist: YOLIE Delacruz Exam Location: [facility] Indications: cp STRESS TEST Please see separate stress test report in Ephiphany for full findings IMAGE PROTOCOL Rest/Stress 1 Lexiscan Day Radiopharmaceutical Dose (mCi) Administration Site Administered by Rest: Tc-99m 8.3 IV Edgar Reyna, AZURE ARCHITECT Sestamibi Stress:Tc-99m 26.3 IV Edgar Reyna, AZURE ARCHITECT Sestamibi Rest: 09-Apr-2024 60 Discovery 630 Stress: 09-Apr-2024 30 Discovery 630 0.4mg Lexiscan. Supine position only as patient was unable to lay prone. SPECT RESULTS Technical Quality: Good Raw Data Analysis: Normal Image Corrections: No attenuation or motion correction applied Summed Stress Score: 9 Summed Rest Score: 4 Summed Difference Score: 5 PERFUSION FINDINGS Moderately decreased tracer uptake was noted in the apical anterior, apical septal, apical lateral and LV apex. Minimally decreased tracer uptake was noted in the apical inferior region. Significant reversibility was noted in the apical anterior, apical septal and LV apex. FUNCTIONAL RESULTS (calculated via Gated SPECT) Stress Image LV EF (%): 59 Stress EDV (mL):100 TID: 1.21 Stress ESV (mL):41 FUNCTIONAL FINDINGS: Segmental wall motion analysis revealed no gross wall motion abnormalities. The transient ischemic dilatation ratio was elevated to 1.21 IMPRESSIONS 1. Myocardial perfusion imaging revealing small area reversible defect involving the apical anterior, apical septal and LV apex suggesting ischemia in the distribution of the distal left anterior descending artery 2. Normal LV ejection fraction 59%. 3. LV wall motion analysis revealing no gross wall motion abnormalities. 4. Normal LV volume 5. Elevated transient ischemic dilation ratio also may suggest endocardial ischemia. No similar previous studies are available for comparison Dr Dickson Wallace MD [facility] (Electronically Signed) Final Date: 09 April 2024 13:08 S
[2024-04-09] MEDS: regadenoson 0.4 Mg/5 ml Syringe IVP (10:54)
[2024-04-09 11:03] VITALS: BP 143/74; PULSE 70
== END 2024-04-09 08:04 | disposition home or self-care (01) ==
LOC: CDL 08:04
PROVIDERS: PCP Family Medicine; Visit Provider Family Medicine
DX: R55 Syncope and collapse (principal); R94.39 Abnormal result of other cardiovascular function study; R06.02 Shortness of breath
CPT/HCPCS: 36415; 78452; 93017; 96374; A9500; J2785

== ENCOUNTER 2024-04-16 08:33 | Outpatient (CLI) | payer MEDICARE, OTHER, SELFPAY ==
--- NOTE | 2024-04-16 08:42 | USCV_ITS ---
Ana Durand Age: 88 Gender: F : 1935 Exam Date: 04/16/2024 09:29 Ordering Phys: Maverick Alejo DO Technologist: CT Exam Location: [facility] [place] Indication: BP: 128 / 84 HR: 50 Rhythm: Sinus Technical Quality: Adequate MEASUREMENTS (Male / Female) Normal Values 2D ECHO LVOT Diameter 2.0 cm LV Ejection Fraction MOD 4C 62.9 % LV Ejection Fraction MOD 2C 66.9 % LV Ejection Fraction 2C AL 66.8 % LA Diameter 3.5 cm RA Systolic Volume 4C AL 28.4 ml RA Systolic Volume 4C MOD 25.8 ml LA Sys Volume AL 50.9 cm cubed LA Sys Volume Index AL 30.7 cm cubed/m squared Aorta at Sinotubular Diameter 2.2 cm IVC Diameter 1.7 cm M-MODE LA Ao Ratio MM 1.4 AV Cusp Separation MM 1.7 cm DOPPLER AV Peak Velocity 154.0 cm/s LVOT Peak Velocity 115.0 cm/s AV Area Cont Eq vti 2.4 cm squared AV Area Cont Eq pk 2.4 cm squared MV Peak Velocity 93.0 cm/s MV Area PHT 3.8 cm squared Mitral E to A Ratio 0.8 TV Peak Velocity 328.2 cm/s TR Peak Velocity 598.5 cm/s TR Peak Gradient 143.3 mmHg TR Mean Velocity 430.0 cm/s TR Mean Gradient 84.1 mmHg TR Velocity Time Integral 221.9 cm TV Peak E Velocity 63.0 cm/s Right Atrial Pressure 3.0 mmHg Pulmonary Artery Systolic Pressu 146.3 mmHg PV Peak Velocity 127.5 cm/s FINDINGS Left Ventricle Normal left ventricular size, systolic function and wall thickness, with no regional wall motion abnormalities. Left ventricular ejection fraction is estimated at 55 %. Grade I/IV diastolic dysfunction (abnormal relaxation filling pattern), normal to mildly elevated filling pressures. Right Ventricle The right ventricle is normal in size and function. RVSP could not be calculated due to incomplete tricuspid regurgitation velocity profile. Right Atrium The right atrium is normal in size. Left Atrium Mildly increased left atrial size. Mitral Valve Mildly thickened mitral valve. No mitral valve stenosis. Mild- moderate mitral valve regurgitation. Aortic Valve Thickened aortic valve. Aortic valve sclerosis without stenosis or regurgitation. Tricuspid Valve Mild tricuspid valve regurgitation. Pulmonic Valve Structurally normal pulmonic valve without significant stenosis. There is no pulmonic regurgitation. Pericardium Normal pericardium without effusion. Aorta Normal ascending aorta dimension. IVC The inferior vena cava appears normal. CONCLUSIONS Normal left ventricular size, systolic function and wall thickness, with no regional wall motion abnormalities. Left ventricular ejection fraction is estimated at 55 %. Grade I/IV diastolic dysfunction (abnormal relaxation filling pattern), normal to mildly elevated filling pressures. Mildly thickened mitral valve. No mitral valve stenosis. Mild- moderate mitral valve regurgitation. Mildly increased left atrial size. Mild tricuspid valve regurgitation. There is no pericardial effusion. Right atrial pressure is around 5 mm of mercury. Mio Grullon MD (Electronically Signed) Final Date: 17 April 2024 21:49 S
== END 2024-04-16 08:34 | disposition home or self-care (01) ==
LOC: RAD 08:34
PROVIDERS: PCP Family Medicine; Visit Provider Family Medicine
DX: I50.30 Unspecified diastolic (congestive) heart failure (principal); I34.0 Nonrheumatic mitral (valve) insufficiency; I35.0 Nonrheumatic aortic (valve) stenosis; R55 Syncope and collapse
CPT/HCPCS: 93306

== ENCOUNTER → 2024-08-27 13:30 | Outpatient (BNVA) | payer MEDICARE, OTHER, SELFPAY | PROVIDERS: PCP Family Medicine; Visit Provider Nurse Practitioner Family | DX: D22.5 Melanocytic nevi of trunk (principal); L57.8 Other skin changes due to chronic exposure to nonionizing radiation; L81.4 Other melanin hyperpigmentation; L65.0 Telogen effluvium; L85.3 Xerosis cutis | CPT/HCPCS: 99213 ==

== ENCOUNTER → 2024-10-16 10:53 | Outpatient (BNVA) | payer MEDICARE, OTHER, SELFPAY | PROVIDERS: PCP Family Medicine; Visit Provider Family Medicine | DX: R30.0 Dysuria (principal); I10 Essential (primary) hypertension; E03.9 Hypothyroidism, unspecified | CPT/HCPCS: 80053; 80061; 81000; 84439; 84443; 85025; 87086 ==

== ENCOUNTER → 2024-12-24 10:30 | Outpatient (BNVA) | payer MEDICARE, OTHER, SELFPAY | PROVIDERS: PCP Family Medicine; Visit Provider Family Medicine | DX: E53.8 Deficiency of other specified B group vitamins (principal); G62.9 Polyneuropathy, unspecified | CPT/HCPCS: 82607 ==

== ENCOUNTER → 2025-01-16 15:56 | Outpatient (BNVA) | payer MEDICARE, OTHER, SELFPAY | PROVIDERS: PCP Family Medicine; Visit Provider Internal Medicine Cardiovascular Disease | DX: R07.9 Chest pain, unspecified (principal); R00.1 Bradycardia, unspecified; I45.9 Conduction disorder, unspecified | CPT/HCPCS: 93005 ==

== ENCOUNTER 2025-02-20 09:58 | Outpatient (CLI) | payer MEDICARE, OTHER, SELFPAY ==
--- NOTE | 2025-02-20 10:01 | MM_ITS ---
WS: [id number] BILATERAL SCREENING DIGITAL TOMOSYNTHESIS MAMMOGRAM WITH CAD HISTORY: SCREENING COMPARISON: 02/15/2024, 02/08/2023 Bilateral CC and MLO views with tomosynthesis and synthetic mammography submitted. Computer aided detection analyzed. Breast composition: There are scattered areas of fibroglandular density. No suspicious masses, microcalcifications or architectural distortion. Benign calcifications in each breast. MM/MM scr BI tomosynthesis [id number] IMPRESSION: BI-RADS: 2 - Benign. FOLLOW UP: 1 Year Follow-up
== END 2025-02-20 09:59 | disposition home or self-care (01) ==
LOC: RAD 09:59
PROVIDERS: PCP Family Medicine; Visit Provider Family Medicine
DX: Z12.31 Encounter for screening mammogram for malignant neoplasm of breast (principal); R92.323 Mammographic fibroglandular density, bilateral breasts
CPT/HCPCS: 77063; 77067